=== PATIENT | male | born 1960 | race Caucasian/White ===

== ENCOUNTER 2020-10-22 00:13 | Emergency (ER) | payer OTHER ==
[~2020-10-22] VITALS: Ht 182.9 cm; Wt 106.1 kg
[2020-10-22] MEDS ORDERED: KETOROLAC 15 MG/ML VIAL. IVP ONE (01:00)
[2020-10-22] MEDS ORDERED: METOCLOPRAMIDE HCL 10 MG/2 ML VIAL. IVP ONE (01:00)
[2020-10-22] MEDS ORDERED: IV NORMAL SALINE 1,000ML 1,000 ML IV ONE (01:00)
[2020-10-22 01:06] LABS: BASO % 1 % (0-3); CALCIUM 8.8 mg/dL (8.5-10.1); CREATININE 1.5 mg/dL (0.7-1.3); EOS # 0.1 x10^3/uL (0.0-0.7); EOS % 2 % (0-3); GFR 47.4; HEMATOCRIT 45.2 % (39.0-53.0); LYMPH % 26 % (24-48); MEAN CORPUSCULAR HEMOGLOBIN 28 pg (25-35); MEAN CORPUSCULAR HGB CONC 33 g/dL (31-37); MEAN CORPUSCULAR VOLUME 85 fL (79-100); MONO # 0.8 x10^3/uL (0.0-1.1); MONO % 10 % (0-9); NEUT # 4.8 x10^3uL (1.8-7.7); NEUT % 62 % (31-73); PLATELET COUNT 185 x10^3/uL (140-400); RED BLOOD COUNT 5.32 x10^6/uL (4.30-5.70); RED CELL DISTRIBUTION WIDTH 14.5 % (11.5-14.5); WHITE BLOOD COUNT 7.8 x10^3/uL (4.0-11.0)
[2020-10-22 01:15] LABS: ALBUMIN 3.7 g/dL (3.4-5.0); ALBUMIN/GLOBULIN RATIO 1.1 (1.0-1.7); TOTAL BILIRUBIN 0.2 mg/dL (0.2-1.0); TOTAL PROTEIN 7.2 g/dL (6.4-8.2)
--- NOTE | 2020-10-22 01:27 | PHYS DOC ---
Past History Past Medical History: GERD Past Surgical History: Cholecystectomy Smoking: Non-smoker Alcohol Use: None Drug Use: None General Adult EDM: Chief Complaint: FLANK PAIN HPI: HPI: 60-year-old male presents with report of sudden right-sided abdominal pain with radiation into right back which occurred just prior to arrival. Reports some associated nausea. Reports pain was sudden and sharp in nature. Reports he did take 400 mg of ibuprofen prior to arrival with some improvement of symptoms. Reports pain is still present however less than prior. Denies dysuria or hematuria. Denies history of kidney stones. Denies rash. Denies trauma. Denies fever or chills. Review of Systems: Review of Systems: Constitutional: Denies fever or chills Eyes: Denies redness or eye pain HENT: Denies nasal congestion or sore throat Respiratory: Denies cough or shortness of breath Cardiovascular: Denies chest pain or palpitations GI: Reports right-sided abdominal pain and nausea; denies vomiting : Denies dysuria or hematuria Musculoskeletal: Reports right back/flank pain; denies joint pain Integument: Denies rash or skin lesions Neurologic: Denies headache, focal weakness or sensory changes Complete systems were reviewed and found to be within normal limits, except as documented in this note. Current Medications: Current Meds: Current Medications Medications (Trade) Dose Ordered Sig/[facility] Start Time Stop Time Status Last Admin Dose Admin Ketorolac Tromethamine (Toradol 15mg Vial) 15 mg 1X ONCE 10/22/20 01:00 10/22/20 01:01 DC 10/22/20 00:55 15 MG Metoclopramide HCl (Reglan Vial) 10 mg 1X ONCE 10/22/20 01:00 10/22/20 01:01 DC 10/22/20 00:56 10 MG Sodium Chloride 1,000 ml @ 1,000 mls/hr 1X ONCE 10/22/20 01:00 10/22/20 01:59 10/22/20 00:56 1,000 MLS/HR Allergies: Allergies: Allergies Coded Allergies Type Severity Reaction Last Updated Verified iodine Allergy Unknown 10/22/20 Yes Physical Exam: PE: Constitutional: Well developed, well nourished, no acute distress, non-toxic appearance HENT: Normocephalic, atraumatic Eyes: Conjunctiva normal, no discharge Neck: Normal range of motion, no tenderness, supple Lungs & Thorax: No respiratory distress, equal chest rise and fall Abdomen: Soft, no tenderness, no guarding/rebound tenderness/distention Skin: Warm, dry, no erythema, no rash Back: No tenderness, right CVA tenderness Extremities: No tenderness, ROM intact, no edema Neurologic: Alert and oriented X 3, no focal deficits noted Psychologic: Affect normal, judgment normal Current Patient Data: Labs: Laboratory Tests Test 10/22/20 00:20 White Blood Count 7.8 x10^3/uL (4.0-11.0) Red Blood Count 5.32 x10^6/uL (4.30-5.70) Hemoglobin 15.0 g/dL (13.0-17.5) Hematocrit 45.2 % (39.0-53.0) Mean Corpuscular Volume 85 fL (79-100) Mean Corpuscular Hemoglobin 28 pg (25-35) Mean Corpuscular Hemoglobin Concent 33 g/dL (31-37) Red Cell Distribution Width 14.5 % (11.5-14.5) Platelet Count 185 x10^3/uL (140-400) Neutrophils (%) (Auto) 62 % (31-73) Lymphocytes (%) (Auto) 26 % (24-48) Monocytes (%) (Auto) 10 % (0-9) H Eosinophils (%) (Auto) 2 % (0-3) Basophils (%) (Auto) 1 % (0-3) Neutrophils # (Auto) 4.8 x10^3uL (1.8-7.7) Lymphocytes # (Auto) 2.0 x10^3/uL (1.0-4.8) Monocytes # (Auto) 0.8 x10^3/uL (0.0-1.1) Eosinophils # (Auto) 0.1 x10^3/uL (0.0-0.7) Basophils # (Auto) 0.0 x10^3/uL (0.0-0.2) Vital Signs: Vital Signs Date Time Temp Pulse Resp B/P (MAP) Pulse Ox O2 Delivery O2 Flow Rate FiO2 10/22/20 00:13 97.5 76 18 137/81 (99) 98 Room Air EKG: EKG: [] Radiology/Procedures: Radiology/Procedures: PROCEDURE: CT ABDOMEN PELVIS WO CONTRAST Exam: CT abdomen/pelvis without intravenous contrast Indication: Right flank pain, kidney stone Comparison: None Technique: Helical CT imaging performed of the abdomen and pelvis without the use of intravenous contrast. Sagittal and coronal reformats were obtained. One or more of the following individualized dose reduction techniques were utilized for this examination: 1. Automated exposure control 2. Adjustment of the mA and/or kV according to patient size 3. Use of iterative reconstruction technique. Findings: Inherently limited evaluation without intravenous contrast. Lower chest: Normal. Liver: Normal. Gallbladder/Biliary Tree: The gallbladder surgically absent. Bile ducts are normal. Pancreas: Normal. Spleen: No symmetrically. There are calcified splenic granulomas. Adrenal Glands: Normal. Kidneys/Ureters/Bladder: There is mild right hydronephrosis due to a 8 mm calculus at the ureteropelvic junction. The rest of the right ureter is normal. There are left peripelvic cysts. No left hydronephrosis. Left ureter is normal. Bladder is normal. Reproductive Organs: Prostate gland is mildly enlarged. Stomach, small bowel, and colon: Normal. Vasculature: Normal caliber abdominal aorta with minimal calcifications. Lymph Nodes: No lymphadenopathy. Peritoneum and retroperitoneum: No free fluid or free air. Bones: No acute osseous abnormality. Impression: 8 mm calculus at the right ureteropelvic junction resulting in mild right hydronephrosis. Electronically signed by: Chandrika Narvaez MD (10/22/2020 1:27 AM) [id number] Course & Med Decision Making: Course & Med Decision Making Pertinent Labs and Imaging studies reviewed. (See chart for details) Patient presents with HPI and physical exam concerning for kidney stone. Pain/nausea addressed. IV fluid hydration given. Labs obtained and posted to chart. Creatnine slightly elevated. UA without signs of infection. CT abdomen/pelvis with confirmation of right UPJ 8mm stone with mild hydronephrosis. Offered transfer to facility with urology. Patient elects to follow up as outpatient and will return to ED if symptoms worsen. Flomax provided. Patient stable for discharge with outpatient follow-up with PCP. Urology referral provided. Discussed findings and plan with patient and family, who acknowledge understanding and agreement. Jie Disclaimer: Jie Disclaimer: This electronic medical record was generated, in whole or in part, using a voice recognition dictation system. Departure Departure: Impression: Primary Impression: Kidney stone Disposition: HOME SELF CARE/HOMELESS Condition: STABLE Referrals: PCPTANIA (PCP) Patient Instructions: Diet for Kidney Stones, Kidney Stones, [id number] Additional Instructions: Increase fluid hydration. May take over the counter Ibuprofen and/or Tylenol as needed for pain or discomfort. Call your insurance carrier for a referral for an Urologist in your area. Return or present to another facility with Urology coverage for any worsening of symptoms. Scripts Ondansetron (ONDANSETRON ODT) 4 Mg Tab.rapdis 1 TAB PO PRN Q6-8HRS PRN for NAUSEA, #16 TAB Prov: JC PÉREZ DO 10/22/20 Tramadol Hcl (TRAMADOL HCL) 50 Mg Tablet 50 MG PO PRN Q6HRS PRN for PAIN, #14 TAB Prov: JC PÉREZ DO 10/22/20 Tamsulosin Hcl (FLOMAX) 0.4 Mg Cap.er.24h 1 CAP PO DAILY for Kidney stone, #7 CAP Prov: JC PÉREZ DO 10/22/20 JC PÉREZ DO Oct 22, 2020 01:27
--- NOTE | 2020-10-22 01:30 | RAD ---
Exam: CT abdomen/pelvis without intravenous contrast Indication: Right flank pain, kidney stone Comparison: None Technique: Helical CT imaging performed of the abdomen and pelvis without the use of intravenous cont rast. Sagittal and coronal reformats were obtained. One or more of the following individualized dose reduction techniques were utilized for this examinat ion: 1. Automated exposure control 2. Adjustment of the mA and/or kV according to patient size 3. Use of iterative reconstruction technique. Findings: Inherently limited evaluation without intravenous contrast. Lower chest: Normal. Liver: Normal. Gallbladder/Biliary Tree: The gallbladder surgically absent. Bile ducts are normal. Pancreas: Normal. Spleen: No symmetrically. There are calcified splenic granulomas. Adrenal Glands: Normal. Kidneys/Ureters/Bladder: There is mild right hydronephrosis due to a 8 mm calculus at the ureteropelv ic junction. The rest of the right ureter is normal. There are left peripelvic cysts. No left hydrone phrosis. Left ureter is normal. Bladder is normal. Reproductive Organs: Prostate gland is mildly enlarged. Stomach, small bowel, and colon: Normal. Vasculature: Normal caliber abdominal aorta with minimal calcifications. Lymph Nodes: No lymphadenopathy. Peritoneum and retroperitoneum: No free fluid or free air. Bones: No acute osseous abnormality. Impression: 8 mm calculus at the right ureteropelvic junction resulting in mild right hydronephrosis. Electronically signed by: Chandrika Narvaez MD (10/22/2020 1:27 AM) [id number]
[2020-10-22] MEDS ORDERED: TAMSULOSIN 0.4 MG CAP.ER.24H. PO ONE (02:00)
[2020-10-22] MEDS ORDERED: traMADol 50 MG TABLET ONE (02:10)
[2020-10-22] MEDS ORDERED: traMADol 50 MG TABLET PO ONE (02:15)
[2020-10-22] MEDS ORDERED: TRAM50TA PO (02:33)
[2020-10-22] MEDS ORDERED: ONDA4TAB12 PO (02:33)
[2020-10-22] MEDS ORDERED: TAMS0.4C97 PO (02:33)
[2020-10-22 02:43] LABS: BILIRUBIN,URINE NEG (NEG); CLARITY,URINE CLEAR; COLOR,URINE YELLOW; GLUCOSE,URINE NEG (NEG); NITRITE,URINE NEG (NEG); UROBILINOGEN,URINE 0.2 mg/dL (0.2 mg/dL)
[2020-10-22 02:44] LABS: BACTERIA,URINE 0 /HPF (0-FEW); SQUAMOUS EPITHELIAL CELL,UR OCC /LPF
[2020-10-22 02:45] VITALS: BP 140/89
== END 2020-10-22 02:45 | disposition home or self-care (01) ==
LOC: ER 00:13
DX: N13.2 Hydronephrosis with renal and ureteral calculous obstruction (principal); K21.9 Gastro-esophageal reflux disease without esophagitis; Z90.49 Acquired absence of other specified parts of digestive tract; Z88.8 Allergy status to other drugs, medicaments and biological substances
CPT/HCPCS: 36415; 74176; 80053; 81001; 83690; 83735; 85025; 87086; 96361; 96374; 96375; 99284; J1885; J2765; J7030

== ENCOUNTER 2020-11-11 19:58 | Emergency (ER) | payer OTHER ==
[~2020-11-11] VITALS: Ht 182.9 cm; Wt 215.0 kg
[~2020-11-11 19:58] MED LIST: ONDA4TAB12 PO; TAMS0.4C97 PO; TRAM50TA PO
[2020-11-11] MEDS ORDERED: guaiFENesin/CODEINE 100mg/10mg 5 ML LIQUID PO PRN (20:45)
--- NOTE | 2020-11-11 20:59 | PHYS DOC ---
Past History Past Medical History: GERD (CHRISTINE FISH APRN) Past Surgical History: Cholecystectomy (CHRISTINE FISH APRN) Smoking: Non-smoker Alcohol Use: None Drug Use: None (CHRISTINE FISH APRN) Adult General Chief Complaint Chief Complaint: FEVER HPI HPI Patient is a 60-year-old male patient presents with cough and dyspnea. Patient reports he been diagnosed with Covid November 02, states over the last 3 days he has been feeling well but more short of breath, with constant coughing. States he had contacted telehealth today, and vomiting, was given Tessalon Perles, which he reports made no improvement. States he is not sleeping at because of the cough. States he has had fevers intermittently throughout the night, he has been taking some Tylenol intermittently. He states he had taken some Mucinex one time for his cough but it did not seem to help. States no headaches, states he has had some nausea related to his coughing, states every time he has a coughing spell he seems to start to vomit up everything. States he has been hy drating Gatorade recently, however is not had much of an appetite and eating much. Patient reports he had been seen in this facility in late October, diagnosed 8 millimeter kidney stone, was set to have procedure to remove it for November 02, however his presurgical screening Covid test showed a positive and he was unable to have the procedure. Reports he still has a kidney stone, however is having very little discomfort at this time, and reports his urine has been largely clear up until today. (CHRISTINE FISH APRN) Review of Systems Review of Systems Constitutional: Reports fever and chills Eyes: Denies change in visual acuity, redness, or eye pain [] HENT: Denies nasal congestion or sore throat [] Respiratory: Reports progressive dry cough, some difficulty breathing while walking Cardiovascular: No additional information not addressed in HPI [] GI: Denies abdominal pain, nausea, bloody stools or diarrhea [] states he has vomiting associated with his coughing : Denies dysuria [] does report return of hematuria today Musculoskeletal: Denies back pain or joint pain [] Integument: Denies rash or skin lesions [] Neurologic: Denies headache, focal weakness or sensory changes [] Endocrine: Denies polyuria or polydipsia [] All other systems were reviewed and found to be within normal limits, except as documented in this note. (CHRISTINE FISH APRN) Current Medications Current Medications Current Medications Medications (Trade) Dose Ordered Sig/[facility] Start Time Stop Time Status Last Admin Dose Admin Dexamethasone Sodium Phosphate (Decadron) 6 mg 1X ONCE 11/11/20 20:45 11/11/20 20:46 UNV Guaifenesin/ Codeine Phosphate (Robitussin Ac) 5 ml PRN Q6HRS PRN 11/11/20 20:45 UNV (CHRISTINE FISH APRN) Allergies Allergies Allergies Coded Allergies Type Severity Reaction Last Updated Verified iodine Allergy Unknown 10/22/20 Yes (CHRISTINE FISH APRN) Physical Exam Physical Exam Constitutional: Well developed, well nourished, no acute distress, non-toxic appearance. [] HENT: Normocephalic, atraumatic, bilateral external ears normal, oropharynx moist, no oral exudates, nose normal. [] Eyes: PERRLA, EOMI, conjunctiva normal, no discharge. [] Neck: Normal range of motion, no tenderness, supple, no stridor. [] Cardiovascular:Heart rate regular rhythm, no murmur [] Lungs & Thorax: Bilateral breath sounds clear to auscultation [] frequent coughing noted during exam. SpO2 room air 94% patient conversational with no noted air hunger, just frequent coughing Abdomen: Bowel sounds normal, soft, no tenderness, no masses, no pulsatile m asses. [] Skin: Warm, dry, no erythema, no rash. [] Back: No tenderness, no CVA tenderness. [] Extremities: No tenderness, no cyanosis, no clubbing, ROM intact, no edema. [] Neurologic: Alert and oriented X 3, normal motor function, normal sensory function, no focal deficits noted. [] Psychologic: Affect normal, judgement normal, mood normal. [] (CHRISTINE FSIH APRN) EKG EKG [] (CHRISTINE FISH APRN) Radiology/Procedures Radiology/Procedures STATUS: REG ERCOWARTS. PHYSICIAN: CHRISTINE FISH APRN REASON: SOA PROCEDURE: CHEST AP ONLY Chest AP portable at 2055: Reason for examination: Short of breath. The heart size is normal. Mediastinum is unremarkable. Lung serrato however show some mild hazy opacity in the right mid and lower lung field which may reflect early pneumonia. No pleural effusions are seen. No acute bony abnormalities are seen. IMPRESSION: Hazy opacities in the right mid and lower lung field which may reflect early pneumonia. Recommend clinical correlation and follow-up. Electronically signed by: Eunice Camacho MD (11/11/2020 9:06 PM) [facility] DICTATED AND SIGNED BY: EUNICE CAMACHO MD DATE: 11/11/202103 CC: CHRISTINE FISH APRN; PCP,NO ~MTH0 0[] (CHRISTINE FISH APRN) Heart Score Risk Factors: Risk Factors: DM, Current or recent (<one month) smoker, HTN, HLP, family history of CAD, obesity. Risk Scores: Risk Factors: DM, Current or recent (<one month) smoker, HTN, HLP, family history of CAD, obesity. (CHRISTINE FISH APRN) Course & Med Decision Making Course & Med Decision Making Pertinent Labs and Imaging studies reviewed. (See chart for details) []@[address] Davis, awaiting labs and disposition. (CHRISTINE FISH APRN) Course & Med Decision Making Did not see or evaluate patient. Did discuss patient with PA and agree with work-up and disposition, outside of the steroids. (KETURAH DAVIS MD) Dragon Disclaimer Dragon Disclaimer This electronic medical record was generated, in whole or in part, using a voice recognition dictation system. (CHRISTINE FISH APRN) Departure Departure: Impression: Primary Impression: Pneumonia Additional Impressions: COVID-19 Cough Disposition: 01 DC HOME SELF CARE/HOMELESS Condition: STABLE Referrals: PCP,NO (PCP) Patient Instructions: Pneumonia, Adult Additional Instructions: As discussed, continue to take the cough syrup as needed. When you are taking it, make sure you are drinking sufficient fluids to stay hydrated. The more hydrated you are, the more likely it will work to loosen the mucous in your c hest and you can cough it out. Continue to take tylenol or Ibuprofen for your fevers. Take the antibiotic as prescribed for the entire duration. Problem Qualifiers Primary Impression: Pneumonia Pneumonia type: due to unspecified organism Laterality: right Lung location: middle lobe of lung Qualified Codes: J18.9 - Pneumonia, unspecified organism CHRISTINE FISH APRN Nov 11, 2020 20:59 KETURAH DAVIS MD Nov 11, 2020 22:06
--- NOTE | 2020-11-11 21:08 | RAD ---
Chest AP portable at 2055: Reason for examination: Short of breath. The heart size is normal. Mediastinum is unremarkable. Lung serrato however show some mild hazy opacit y in the right mid and lower lung field which may reflect early pneumonia. No pleural effusions are s een. No acute bony abnormalities are seen. IMPRESSION: Hazy opacities in the right mid and lower lung field which may reflect early pneumonia. Recommend cli nical correlation and follow-up. Electronically signed by: Eunice Alejandra MD (11/11/2020 9:06 PM) [facility]
[2020-11-11] MEDS ORDERED: DEXAMETHASONE SOD PHOS 4 MG/ML VIAL. IVP ONE (21:30)
[2020-11-11] MEDS ORDERED: AZITHROMYCIN 250 MG TABLET. PO ONE (21:45)
[2020-11-11 21:52] VITALS: BP 146/83
[2020-11-11 22:02] LABS: BASO % 0 % (0-3); EOS % 0 % (0-3); HEMATOCRIT 36.6 % (39.0-53.0); HEMOGLOBIN 12.4 g/dL (13.0-17.5); LYMPH # 0.4 x10^3/uL (1.0-4.8); LYMPH % 6 % (24-48); MEAN CORPUSCULAR HEMOGLOBIN 29 pg (25-35); MEAN CORPUSCULAR HGB CONC 34 g/dL (31-37); MEAN CORPUSCULAR VOLUME 84 fL (79-100); MONO # 0.6 x10^3/uL (0.0-1.1); MONO % 8 % (0-9); NEUT # 6.3 x10^3uL (1.8-7.7); NEUT % 85 % (31-73); PLATELET COUNT 174 x10^3/uL (140-400); RED BLOOD COUNT 4.34 x10^6/uL (4.30-5.70); RED CELL DISTRIBUTION WIDTH 13.7 % (11.5-14.5); WHITE BLOOD COUNT 7.4 x10^3/uL (4.0-11.0)
[2020-11-11 22:09] LABS: CALCIUM 8.1 mg/dL (8.5-10.1); CREATININE 1.2 mg/dL (0.7-1.3); GFR 61.3; POTASSIUM 3.5 mmol/L (3.5-5.1)
[2020-11-11 22:11] LABS: ALBUMIN 2.6 g/dL (3.4-5.0); ALBUMIN/GLOBULIN RATIO 0.6 (1.0-1.7); TOTAL BILIRUBIN 1.2 mg/dL (0.2-1.0); TOTAL PROTEIN 7.1 g/dL (6.4-8.2)
--- NOTE | 2020-11-11 22:25 | EKG ---
[address] [address] Test Date: 2020-11-11 Test Time: 22:14:00 Pat Name: NALLELY BIRD Department: Room: Gender: M Microfilmer: RIAZ : 1960 Requested By: CHRISTINE FISH Order Number: [id number] Reading MD: Measurements Intervals [place] Rate: 82 P: [place]: QRS: -21 QRSD: 84 T: 59 QT: 348 QTc: 409 Interpretive Statements ATRIAL FLUTTER LEFTWARD AXIS ABNORMAL ECG RI6.02 No previous ECG available for comparison
[2020-11-11] MEDS ORDERED: PROMETH/CODEINE 6.25/10MG 5 ML SYRUP. PO PRN (22:45)
[2020-11-11] MEDS ORDERED: levoFLOXacin 500 MG TABLET PO ONE (22:45)
[2020-11-11] MEDS ORDERED: ONDA4TAB7 PO (22:46)
[2020-11-11] MEDS ORDERED: GUAI118S65 PO (22:46)
[2020-11-11] MEDS ORDERED: LEVO500T8 PO (22:47)
== END 2020-11-11 23:01 | disposition home or self-care (01) ==
LOC: ER 19:58
DX: U07.1 COVID-19 (principal); J12.82 Pneumonia due to coronavirus disease 2019; K21.9 Gastro-esophageal reflux disease without esophagitis; Z90.49 Acquired absence of other specified parts of digestive tract; Z88.8 Allergy status to other drugs, medicaments and biological substances
CPT/HCPCS: 36415; 71045; 80053; 83605; 84484; 85025; 93005; 96374; 99283; J1100

== ENCOUNTER → 2020-11-24 | Outpatient (CLI) | payer OTHER ==
[2020-11-11 21:52] VITALS: BP 146/83
[~2020-11-24] MED LIST changes: +GUAI118S65 PO; +LEVO500T8 PO; +ONDA4TAB7 PO
--- NOTE | 2020-11-24 16:51 | RAD ---
XR CHEST 2V History: Reason: COVID SYMPTOMS / Spl. Instructions: / History: Comparison: 11/11/2020 Technique: PA and lateral chest radiographs. Findings: The lungs are adequately and symmetrically inflated. There are hazy opacities in the right greater th an left lung which are more conspicuous than comparison. No pleural effusion or pneumothorax. Cardiac mediastinal silhouette and pulmonary vasculature are within normal limits. Senescent changes of the spine and shoulders. Impression: 1. Hazy right greater than left lung opacities more conspicuous than prior exam concerning for pneum onia. Electronically signed by: Demetrio Thomson MD (11/24/2020 4:48 PM) [facility]
== END ==
LOC: RAD 09:58
PROVIDERS: ATTEND Internal Medicine
DX: R05 Cough (principal)
CPT/HCPCS: 71046

== ENCOUNTER → 2021-02-05 | Outpatient (CLI) | payer OTHER ==
--- NOTE | 2021-02-06 09:51 | RAD ---
Abdomen supine: Reason for examination: Calculus in the ureter. History of lithotripsy for right renal stone. Comparison is made to previous CT examination dated 10/22/2020. There is no gross organomegaly. Psoas muscles are symmetric. Bowel gas pattern is nonspecific. Note i s made however of a calcific density measuring approximately 8 mm in size located inferior to the rig ht transverse process of L3. This probably corresponds to the calculus seen previously at the right u reteropelvic junction. No other renal calculi are identified. No acute bony abnormalities are seen. S urgical clips are seen from previous cholecystectomy. IMPRESSION: 8 mm calculus seen inferior to the right transverse process of the L3 vertebral body and probably cor responding to the calculus seen previously at the right ureteropelvic junction. Electronically signed by: Eunice Alejandra MD (02/06/2021 9:48 AM) [facility]
== END ==
LOC: RAD 12:13
PROVIDERS: ATTEND Urology
DX: N20.1 Calculus of ureter (principal); N20.0 Calculus of kidney; Z90.49 Acquired absence of other specified parts of digestive tract
CPT/HCPCS: 74018